=== PATIENT | female | born 1935 | race Caucasian/White ===

== ENCOUNTER → 2017-07-12 | Outpatient (CLI) | payer OTHER, MEDICARE ==
[~2017-07-12] MED LIST: ALEVE220 MG PO; AMBIEN; AMBIEN 10 MG TA10 MG PO; CARDIZEM; CARDIZEM CD240 MG PO; COLACE100 MG PO; HYDROCODON-ACE1 EAC8 PO; IBUPROFEN 400400 M2 PO; LABETALOL HCL100 MG PO; LIPITOR; LIPITOR20 MG PO; MEDROLDOSEPACK PO; MINIPRIN81 MG PO; NAPROSYN500 MG PO; NORCO 5-325 TA1 EACH PO; SYNTHROID; SYNTHROID125 MCG PO; TOPROL XL25 MG PO; VOLTAREN GEL 1100 G1 TOP
== END ==
LOC: ULTRA 07:44
DX: I15.0 Renovascular hypertension (principal); I70.1 Atherosclerosis of renal artery

== ENCOUNTER → 2018-09-11 | Outpatient (CLI) | payer OTHER, MEDICARE | LOC: RAD 09:33 | DX: J01.00 Acute maxillary sinusitis, unspecified (principal); R50.9 Fever, unspecified ==